=== PATIENT | male | born 1940 | race Two or more races ===

== ENCOUNTER 2025-09-10 13:12 | Inpatient (IN) | payer OTHER ==
[~2025-09-10] VITALS: Ht 172.7 cm; Wt 59.0 kg
[2025-09-10] MEDS ORDERED: AMIO100T PO (13:38)
[2025-09-10] MEDS ORDERED: POTA10CA43 PO (13:38)
[2025-09-10] MEDS ORDERED: TAMS-12 PO (13:38)
[2025-09-10] MEDS ORDERED: ATOR10TA PO (13:38)
[2025-09-10] MEDS ORDERED: SPIR25TA6 PO (13:38)
[2025-09-10] MEDS ORDERED: EMPA10TA PO (13:38)
[2025-09-10] MEDS ORDERED: FURO40TA5 PO (13:38)
[2025-09-10] MEDS ORDERED: APIX2.5T PO (13:38)
[2025-09-10] MEDS ORDERED: CILO100T PO (13:38)
[2025-09-10] MEDS: IV NS 0.9% 500 ML BAG IV ONE (13:54)
[2025-09-10 14:16] LABS: PLATELET COUNT (AUTO) 184 K/uL (150-450); RED BLOOD CELL COUNT(AUTO) 4.27 MIL/uL (4.5-6.0); RED CELL DISTRIBUTION WIDTH 14.2 % (11.5-15.0); WHITE BLOOD COUNT (AUTO) 9.7 K/uL (4.3-11.0)
[2025-09-10 14:28] LABS: PHOSPHORUS 3.1 mg/dL (2.5-4.9)
[2025-09-10 14:32] LABS: CALCIUM, SERUM 9.3 mg/dL (8.5-10.1); CREATININE 2.0 mg/dL (0.6-1.3); SODIUM SERUM 136.0 mmol/L (136-145); UREA NITROGEN, BLOOD 43.0 mg/dL (7-18)
[2025-09-10] MEDS ORDERED: ONDANSETRON HCL/PF 4 MG/2 ML VIAL ONE (14:39)
[2025-09-10] MEDS ORDERED: MORPHINE SULFATE INJ 2 MG/ML DISP.SYRIN ONE (14:39)
[2025-09-10] MEDS: MORPHINE SULFATE INJ 2 MG/ML DISP.SYRIN IV ONE (14:42)
[2025-09-10 14:43] LABS: ASPARTATE AMINOTRANSFERASE 16.0 U/L (15-37); TOTAL PROTEIN, SERUM 7.0 g/dL (6.4-8.2)
[2025-09-10] MEDS: ONDANSETRON HCL/PF 4 MG/2 ML VIAL IVP ONE (14:43)
[2025-09-10 14:50] LABS: INR 1.07 (0.91-1.10)
[2025-09-10 15:20] LABS: APPEARANCE,URINE CLEAR (CLEAR); BLOOD, URINE NEGATIVE Ery/uL (NEGATIVE); LEUKOCYTE ESTERASE ,URINE NEGATIVE (NEGATIVE); NITRITE, URINE NEGATIVE (NEGATIVE); UGLUCOSE TRACE mg/dL (NEGATIVE)
[2025-09-10 15:28] LABS: SQUAMOUS EPITHELIAL CELL,UR Moderate /HPF (None Seen); YEAST,URINE Many /HPF (None Seen)
[2025-09-10 15:29] LABS: ADD URINE CULTURE YES
[2025-09-10] MEDS ORDERED: CEFTRIAXONE 1GM BAG (ER ONLY) 50 ML IV ONE (16:24)
[2025-09-10] MEDS: CEFTRIAXONE 1GM BAG (ER ONLY) 1 GM/50 ML PIGGYBACK IV ONE (16:32)
[2025-09-10] MEDS ORDERED: ACETAMINOPHEN 325 MG TABLET PO PRN (17:30)
[2025-09-10] MEDS ORDERED: Z GUARD REMEDY 4 OZ OINT TP PRN (17:30)
[2025-09-10] MEDS ORDERED: HYDROCODONE/APAP 5/325MG TABLET PO PRN (17:30)
[2025-09-10] MEDS ORDERED: ONDANSETRON HCL/PF 4 MG/2 ML VIAL IVP PRN (17:30)
[2025-09-10 18:32] VITALS: BP 112/58; TEMP 97.1; O2SAT 100
[2025-09-10] MEDS: POTASSIUM CHLORIDE 20 MEQ TAB.PRT.SR PO ONE (18:58)
[2025-09-10] MEDS: APIXABAN 2.5 MG TABLET PO SCH (18:58)
[2025-09-10] MEDS: LACTULOSE 10 G/15 ML UDC (PYXIS) PO SCH (18:58)
[2025-09-10 20:00] VITALS: BP 116/58; TEMP 98.2; O2SAT 99
[2025-09-10] MEDS: TAMSULOSIN 0.4 MG CAP.SR.24H PO SCH (22:26)
[2025-09-10] MEDS: SENNOSIDES/DOCUSATE SODIUM 1 TAB TABLET PO SCH (22:26)
[2025-09-10] MEDS: ATORVASTATIN 10 MG TABLET PO SCH (22:26)
[2025-09-11] VITALS: BP 123/81; TEMP 98; O2SAT 100
[2025-09-11 04:00] VITALS: BP 126/62; TEMP 98.1; O2SAT 100
[2025-09-11 07:08] LABS: PLATELET COUNT (AUTO) 195 K/uL (150-450); RED BLOOD CELL COUNT(AUTO) 4.18 MIL/uL (4.5-6.0); RED CELL DISTRIBUTION WIDTH 13.8 % (11.5-15.0); WHITE BLOOD COUNT (AUTO) 10.1 K/uL (4.3-11.0)
[2025-09-11] MEDS: POLYETHYLENE GLYCOL 3350 17 GM POWD.PACK PO SCH (08:36)
[2025-09-11] MEDS: ACIDOPHILUS/BULGARICUS 1 EACH TAB.CHEW PO SCH (08:56)
[2025-09-11] MEDS: PANTOPRAZOLE 40 MG TABLET.DR PO SCH (08:56)
[2025-09-11] MEDS: FUROSEMIDE 40 MG TABLET PO SCH (08:57)
[2025-09-11] MEDS: SPIRONOLACTONE 25 MG TABLET PO SCH (08:57)
[2025-09-11] MEDS: AMIODARONE HCL 200 MG TABLET PO SCH (08:57)
[2025-09-11] MEDS: CILOSTAZOL 100 MG TABLET PO SCH (08:59)
[2025-09-11 09:25] VITALS: BP 116/61; TEMP 98.1; O2SAT 98
[2025-09-11] MEDS: EMPAGLIFLOZIN 10 MG TABLET PO SCH (10:02)
[2025-09-11 16:31] LABS: CALCIUM, SERUM 8.8 mg/dL (8.5-10.1); CREATININE 1.9 mg/dL (0.6-1.3); PHOSPHORUS 3.2 mg/dL (2.5-4.9); UREA NITROGEN, BLOOD 38.0 mg/dL (7-18)
[2025-09-11 16:32] LABS: CREATININE, URINE 121.5 MG/DL (30.0-125.0); URINE TOTAL PROTEIN 36.8 mg/dL (0-11.9)
[2025-09-11 16:36] LABS: URINE SODIUM, RANDOM < 5 mmol/l (40-220)
[2025-09-11 16:49] LABS: SODIUM SERUM 135.0 mmol/L (136-145)
[2025-09-11] MEDS: CEFTRIAXONE 1 G in IV D5W 50 ML IV SCH (17:12)
[2025-09-11] MEDS: POTASSIUM CHLORIDE 20 MEQ TAB.PRT.SR PO ONE (19:46)
[2025-09-11 20:00] VITALS: BP 93/76; TEMP 97.9; O2SAT 99
[2025-09-12] VITALS: BP 102/58; TEMP 98.2; O2SAT 95
[2025-09-12 04:00] VITALS: BP 99/61; TEMP 98.2; O2SAT 97
[2025-09-12 06:32] LABS: PLATELET COUNT (AUTO) 195 K/uL (150-450); RED BLOOD CELL COUNT(AUTO) 3.96 MIL/uL (4.5-6.0); RED CELL DISTRIBUTION WIDTH 13.6 % (11.5-15.0); WHITE BLOOD COUNT (AUTO) 7.3 K/uL (4.3-11.0)
[2025-09-12 07:16] LABS: CREATINE KINASE, TOTAL 29.0 U/L (39-308)
[2025-09-12 07:22] LABS: ASPARTATE AMINOTRANSFERASE 11.0 U/L (15-37); CALCIUM, SERUM 9.0 mg/dL (8.5-10.1); CREATININE 1.7 mg/dL (0.6-1.3); PHOSPHORUS 2.2 mg/dL (2.5-4.9); SODIUM SERUM 137.0 mmol/L (136-145); TOTAL PROTEIN, SERUM 6.5 g/dL (6.4-8.2); UREA NITROGEN, BLOOD 35.0 mg/dL (7-18)
[2025-09-12 08:00] VITALS: BP 118/99; TEMP 97.3; O2SAT 99
[2025-09-12 11:00] VITALS: BP 123/71; TEMP 97.5; O2SAT 98
[2025-09-12 16:00] VITALS: BP 108/61; TEMP 97.9; O2SAT 97
[2025-09-12] MEDS: K PHOS NEUTRAL 250 MG TABLET PO ONE (16:58)
[2025-09-12 20:00] VITALS: BP 115/61; TEMP 98.1; O2SAT 98
[2025-09-13] VITALS (9 sets, daily range): BP systolic 91–125; BP diastolic 47–73; TEMP 97.3–98.4; O2SAT 94–100
[2025-09-13 07:07] LABS: PTH, INTACT 32 pg/mL (15-65)
[2025-09-13 08:58] LABS: PLATELET COUNT (AUTO) 204 K/uL (150-450); RED BLOOD CELL COUNT(AUTO) 3.97 MIL/uL (4.5-6.0); RED CELL DISTRIBUTION WIDTH 14.0 % (11.5-15.0); WHITE BLOOD COUNT (AUTO) 6.6 K/uL (4.3-11.0)
[2025-09-13 09:22] LABS: ASPARTATE AMINOTRANSFERASE 14.0 U/L (15-37); CALCIUM, SERUM 8.7 mg/dL (8.5-10.1); CREATININE 1.5 mg/dL (0.6-1.3); PHOSPHORUS 3.0 mg/dL (2.5-4.9); SODIUM SERUM 138.0 mmol/L (136-145); TOTAL PROTEIN, SERUM 5.9 g/dL (6.4-8.2); UREA NITROGEN, BLOOD 26.0 mg/dL (7-18)
[2025-09-13] MEDS: VANCOMYCIN HCL 250 MG CAPSULE PO SCH (12:39)
[2025-09-13] MEDS: POTASSIUM CHLORIDE 20 MEQ TAB.PRT.SR PO ONE (21:11)
[2025-09-14] VITALS (9 sets, daily range): BP systolic 82–107; BP diastolic 55–66; TEMP 97.5–98.2; O2SAT 97–99
[2025-09-14 06:24] LABS: PLATELET COUNT (AUTO) 209 K/uL (150-450); RED BLOOD CELL COUNT(AUTO) 3.86 MIL/uL (4.5-6.0); RED CELL DISTRIBUTION WIDTH 13.6 % (11.5-15.0); WHITE BLOOD COUNT (AUTO) 7.0 K/uL (4.3-11.0)
[2025-09-14 06:56] LABS: ASPARTATE AMINOTRANSFERASE 19.0 U/L (15-37); CALCIUM, SERUM 8.9 mg/dL (8.5-10.1); CREATININE 1.5 mg/dL (0.6-1.3); PHOSPHORUS 2.7 mg/dL (2.5-4.9); SODIUM SERUM 138.0 mmol/L (136-145); TOTAL PROTEIN, SERUM 5.9 g/dL (6.4-8.2); UREA NITROGEN, BLOOD 23.0 mg/dL (7-18)
[2025-09-14] MEDS: POTASSIUM CHLORIDE 20 MEQ TAB.PRT.SR PO ONE (10:04)
[2025-09-14] MEDS: IV D5/ 0.9% NACL 1,000 ML IV PRN (17:10)
[2025-09-15 04:00] VITALS: BP 104/61; TEMP 97.2; O2SAT 97
[2025-09-15 07:00] VITALS: BP 106/59; TEMP 98.1; O2SAT 98
[2025-09-15 07:18] LABS: PLATELET COUNT (AUTO) 208 K/uL (150-450); RED BLOOD CELL COUNT(AUTO) 3.49 MIL/uL (4.5-6.0); RED CELL DISTRIBUTION WIDTH 13.8 % (11.5-15.0); WHITE BLOOD COUNT (AUTO) 5.8 K/uL (4.3-11.0)
[2025-09-15 07:45] LABS: ASPARTATE AMINOTRANSFERASE 18.0 U/L (15-37); CALCIUM, SERUM 8.2 mg/dL (8.5-10.1); CREATININE 1.2 mg/dL (0.6-1.3); PHOSPHORUS 2.5 mg/dL (2.5-4.9); SODIUM SERUM 140.0 mmol/L (136-145); TOTAL PROTEIN, SERUM 5.2 g/dL (6.4-8.2); UREA NITROGEN, BLOOD 14.0 mg/dL (7-18)
[2025-09-15] MEDS: POTASSIUM CHLORIDE 20 MEQ TAB.PRT.SR PO ONE (10:13)
[2025-09-15 11:30] VITALS: BP 109/63; TEMP 97.3; O2SAT 100
[2025-09-15 16:00] VITALS: BP 111/61; TEMP 97.3; O2SAT 99
[2025-09-15 20:00] VITALS: BP 118/59; TEMP 97.9; O2SAT 100
[2025-09-16] VITALS: BP_SYST 103; BP_SYST 122; BP_DIAS 47; BP_DIAS 64; TEMP 97.7; TEMP 98.1; O2SAT 97; O2SAT 98
[2025-09-16 07:59] LABS: CALCIUM, SERUM 8.4 mg/dL (8.5-10.1); CREATININE 1.1 mg/dL (0.6-1.3); PHOSPHORUS 2.1 mg/dL (2.5-4.9); SODIUM SERUM 143.0 mmol/L (136-145); UREA NITROGEN, BLOOD 7.0 mg/dL (7-18)
[2025-09-16 08:00] VITALS: BP 117/60; TEMP 98.2; O2SAT 99
[2025-09-16 16:20] VITALS: BP 101/64; TEMP 98; O2SAT 99
[2025-09-16] MEDS: K PHOS NEUTRAL 250 MG TABLET PO ONE (17:22)
[2025-09-16 20:00] VITALS: BP 122/63; TEMP 97.5; O2SAT 99
[2025-09-17] VITALS: BP 133/85; TEMP 98.1; O2SAT 99
[2025-09-17 08:40] VITALS: BP 127/68; TEMP 97.9; O2SAT 97
[2025-09-17 11:31] LABS: CALCIUM, SERUM 8.2 mg/dL (8.5-10.1); CREATININE 1.0 mg/dL (0.6-1.3); PHOSPHORUS 2.1 mg/dL (2.5-4.9); SODIUM SERUM 144.0 mmol/L (136-145); UREA NITROGEN, BLOOD 8.0 mg/dL (7-18)
[2025-09-17 12:11] VITALS: BP 92/52; TEMP 97.5; O2SAT 99
[2025-09-17 16:29] VITALS: BP 102/50; TEMP 97.7; O2SAT 94
[2025-09-17] MEDS: K PHOS NEUTRAL 250 MG TABLET PO ONE (16:49)
[2025-09-17] MEDS: POTASSIUM CHLORIDE 20 MEQ TAB.PRT.SR PO ONE (16:49)
[2025-09-17 20:00] VITALS: BP 126/78; TEMP 97.9; O2SAT 98
[2025-09-18] VITALS: BP 108/68; TEMP 98.1; O2SAT 96
[2025-09-18 04:00] VITALS: BP 108/66; TEMP 98; O2SAT 98
[2025-09-18 06:02] LABS: CALCIUM, SERUM 8.2 mg/dL (8.5-10.1); CREATININE 0.8 mg/dL (0.6-1.3); SODIUM SERUM 145.0 mmol/L (136-145); UREA NITROGEN, BLOOD 8.0 mg/dL (7-18)
[2025-09-18 06:07] LABS: PHOSPHORUS 2.5 mg/dL (2.5-4.9)
[2025-09-18 08:29] VITALS: BP 130/84; TEMP 98.1; O2SAT 97
[2025-09-18 13:01] VITALS: BP 112/68; TEMP 97.5; O2SAT 97
[2025-09-18 16:12] VITALS: BP 116/58; TEMP 97.4; O2SAT 95
[2025-09-18 20:00] VITALS: BP 115/63; TEMP 97.5; O2SAT 99
[2025-09-19 07:27] LABS: PLATELET COUNT (AUTO) 245 K/uL (150-450); RED BLOOD CELL COUNT(AUTO) 3.57 MIL/uL (4.5-6.0); RED CELL DISTRIBUTION WIDTH 14.2 % (11.5-15.0); WHITE BLOOD COUNT (AUTO) 4.7 K/uL (4.3-11.0)
[2025-09-19 08:00] VITALS: BP 127/70; TEMP 98; O2SAT 100
[2025-09-19 08:12] LABS: CALCIUM, SERUM 8.6 mg/dL (8.5-10.1); CREATININE 1.0 mg/dL (0.6-1.3); PHOSPHORUS 2.1 mg/dL (2.5-4.9); SODIUM SERUM 148.0 mmol/L (136-145); UREA NITROGEN, BLOOD 6.0 mg/dL (7-18)
[2025-09-19] MEDS: POTASSIUM CHLORIDE 20 MEQ TAB.PRT.SR PO SCH (10:28)
[2025-09-19 16:00] VITALS: BP 113/72; TEMP 97.5; O2SAT 99
[2025-09-19] MEDS: K PHOS NEUTRAL 250 MG TABLET PO ONE (16:36)
[2025-09-19 20:00] VITALS: BP 116/84; TEMP 207.5; TEMP 97.5; O2SAT 98
[2025-09-20] MEDS ORDERED: VANCOMYCIN HCL 250 MG CAPSULE PO ONE (06:34)
[2025-09-20 07:00] VITALS: BP 110/57; TEMP 98.1; O2SAT 96
[2025-09-20 07:41] LABS: PLATELET COUNT (AUTO) 235 K/uL (150-450); RED BLOOD CELL COUNT(AUTO) 3.21 MIL/uL (4.5-6.0); RED CELL DISTRIBUTION WIDTH 13.6 % (11.5-15.0); WHITE BLOOD COUNT (AUTO) 4.6 K/uL (4.3-11.0)
[2025-09-20 08:13] LABS: CREATININE 0.8 mg/dL (0.6-1.3); PHOSPHORUS 2.1 mg/dL (2.5-4.9); SODIUM SERUM 143.0 mmol/L (136-145); UREA NITROGEN, BLOOD 8.0 mg/dL (7-18)
[2025-09-20 08:42] LABS: CALCIUM, SERUM 7.9 mg/dL (8.5-10.1)
[2025-09-20 09:21] VITALS: BP 110/57
[2025-09-20] MEDS ORDERED: Vancomycin Hcl PO (10:45)
[2025-09-20] MEDS ORDERED: LEVO500T90 PO (10:45)
[2025-09-20] MEDS ORDERED: ACID1TAB12 PO (10:45)
[2025-09-22 06:09] LABS: *SPE A/G RATIO 1.0 (0.7-1.7); *SPE ALBUMIN 3.0 g/dL (2.9-4.4); *SPE ALPHA-1-GLOBULIN 0.4 g/dL (0.0-0.4); *SPE ALPHA-2-GLOBULIN 0.8 g/dL (0.4-1.0); *SPE BETA GLOBULIN 0.8 g/dL (0.7-1.3); *SPE GLOBULIN, TOTAL 3.1 g/dL (2.2-3.9); *SPE M-SPIKE Not Observed g/dL (Not Observed); *SPE PROTEIN TOTAL 6.1 g/dL (6.0-8.5); *SPEGAMMA GLOBULIN 1.0 g/dL (0.4-1.8)
== END 2025-09-20 14:11 | DRG 466 ==
LOC: ER 13:24 → TELE 17:09 → MED 09-18 18:49
PROVIDERS: ADMIT Nurse Practitioner Family; ATTEND Student in an Organized Health Care Education/Training Program
DX: T83.511A Infection and inflammatory reaction due to indwelling urethral catheter, initial encounter (principal); A04.72 Enterocolitis due to Clostridium difficile, not specified as recurrent; E44.1 Mild protein-calorie malnutrition; E88.09 Other disorders of plasma-protein metabolism, not elsewhere classified; K76.89 Other specified diseases of liver; I13.0 Hypertensive heart and chronic kidney disease with heart failure and stage 1 through stage 4 chronic kidney disease, or unspecified chronic kidney disease; E86.1 Hypovolemia; N39.0 Urinary tract infection, site not specified; N17.9 Acute kidney failure, unspecified; E11.22 Type 2 diabetes mellitus with diabetic chronic kidney disease; N18.9 Chronic kidney disease, unspecified; K59.00 Constipation, unspecified; E78.5 Hyperlipidemia, unspecified; E87.6 Hypokalemia; Y84.6 Urinary catheterization as the cause of abnormal reaction of the patient, or of later complication, without mention of misadventure at the time of the procedure; Y92.099 Unspecified place in other non-institutional residence as the place of occurrence of the external cause; H91.90 Unspecified hearing loss, unspecified ear; K59.09 Other constipation; Z79.01 Long term (current) use of anticoagulants; I48.91 Unspecified atrial fibrillation; K44.9 Diaphragmatic hernia without obstruction or gangrene; N40.0 Benign prostatic hyperplasia without lower urinary tract symptoms; M89.8X9 Other specified disorders of bone, unspecified site
CPT/HCPCS: 36415; 71045-TC; 76770-TC; 80048-TC; 80053-TC; 80076-TC; 81001; 82550-TC; 82570-TC; 83690-TC; 83735-TC; 83970; 84100-TC; 84155; 84165; 84300-TC; 85025-TC; 85730-TC; 87081-TC; 87086-TC; 87186-TC; 97116-TC; 97530-TC; 97535-TC; A4223; A6403; G0378; J0696; J2270; J2405; J3490; J7040; J7042; J7050; J7060